=== PATIENT | female | born 1955 | race Caucasian/White ===

== ENCOUNTER 2023-10-10 09:26 | Emergency (ER) | payer MEDICARE, SELFPAY ==
[2023-10-10 09:38] VITALS: BP 125/89; PULSE 84; RESP 16; TEMP 36; O2SAT 96
[2023-10-10 09:46] VITALS: BP 125/89; PULSE 84; RESP 16; TEMP 36; O2SAT 96
--- NOTE | 2023-10-10 10:05 | ED.GENADULT ---
HPI - General Adult General Chief complaint: Skin/Abscess/Foreign Body Stated complaint: Insect Bite Source: patient Mode of arrival: ambulatory Limitations: no limitations History of Present Illness HPI narrative: Patient presents for evaluation of pruritis noted to her back. She states she had a picnic on Mother's Day. Yesterday she experienced itching to her back and was concerned she may have a tick on her skin. She never visualize the tick and came in today requesting that I ?dig it out . No fever, chills, nausea, vomiting, weakness, myalgias. 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 When asked to clarify, she states that she has been shredding (her) stool for the past three months. She states she lives at home with her methamphetamine-addicted son . She denies any methamphetamine use. She denies SI, HI. Related Data Home Medications Medication Instructions Recorded Confirmed levothyroxine 100 mcg tablet mcg 10/10/23 Allergies Allergy/AdvReac Type Severity Reaction Status Date / Time Cephalosporins Allergy Unknown Verified 10/10/23 09:45 citalopram Allergy Unknown Verified 10/10/23 09:45 escitalopram Allergy Unknown Verified 10/10/23 09:45 hydroxychloroquine Allergy Unknown Verified 10/10/23 09:45 paroxetine Allergy Unknown Verified 10/10/23 09:45 Penicillins Allergy Unknown Verified 10/10/23 09:45 Review of Systems Review of Systems: CONSTITUTIONAL: Denies fever, chills, or sweats. EYES: Denies visual changes, redness, or discharge. ENT: Denies rhinorrhea, congestion, sore throat, or otalgia. CARDIOVASCULAR: Denies chest pain, palpitations, or edema. RESPIRATORY: Denies cough or dyspnea. GASTROINTESTINAL: Denies abdominal pain, nausea, vomiting, or diarrhea. GENITOURINARY: Denies dysuria or hematuria. SKIN: Reports itching to her back. MUSCULOSKELETAL: Denies back pain, joint pain, or myalgia. NEUROLOGIC: Denies headache, numbness, dizziness, or weakness. PSYCHIATRIC: Denies anxiety or depression. [facility] Past Medical History Medical History Osteoporosis Surgical History Surgical History No pertinent past surgical history Family History Family History Mother Family history non-contributory Social History Social History Smoking status: Former smoker Substance use: never Living arrangements: with family Gender identity (if verbalized by the patient): Female Spiritual care concerns: No Exam Narrative: GENERAL: Well-appearing, well-nourished, and in no acute distress. HEAD: Normocephalic, atraumatic. EYES: PERRLA and EOMI. ENT: Nares clear, no rhinorrhea or epistaxis. Mucous membranes moist. Oropharynx without tonsillar hypertrophy exudate or other lesions. Bilateral TMs pearly britt nonbulging NECK: Supple. No adenopathy or masses. No carotid bruits or JVD CHEST: Clear to auscultation. No respiratory distress. No wheezes rales or rhonchi HEART: Regular rate and rhythm. No murmur heard. Normal peripheral pulses. ABDOMEN: Soft, nontender, nondistended, normal active bowel sounds. EXTREMITIES: Normal range of motion. No edema. SKIN: Warm, dry, no rash. There is an approximately 3 mm area of redness overlying the posterior aspect of the trapezius on the left side NEURO: No focal deficits. Alert and oriented x3. PSYCH: Bizarre behavior. Course Course Emergency Course: This is a 68-year-old female who presented for evaluation of itching to her skin. She is concerned that she had ticks under her skin that she wanted me to take out. She never visualized attack. We discussed clinical indications for antibiotics and she states that she is not interested in that. She simpl
== END 2023-10-10 10:10 | disposition home or self-care (01) ==
PROVIDERS: Emergency Provider Nurse Practitioner
DX: L29.9 Pruritus, unspecified (principal); Z87.891 Personal history of nicotine dependence; M81.0 Age-related osteoporosis without current pathological fracture
CPT/HCPCS: 99211; G0463